=== PATIENT | male | born 1955 | race Caucasian/White ===

== ENCOUNTER 2017-08-13 15:55 | Inpatient (IN) | payer MEDICAID ==
[~2017-08-13] VITALS: Ht 193 cm; Wt 90.7 kg
[~2017-08-13 15:55] MED LIST: LISINOPRIL10 MG PO; OMEPRAZOLE20 M1 PO
[2017-08-13 16:34] LABS: BASOPHILS 0.1 % (0-2); EOSINOPHILS 0.3 % (0-7); HEMATOCRIT 47.4 % (42.0-54.0); HEMOGLOBIN 16.3 g/dL (13.5-17.5); IMMATURE GRANULOCYTES 0.3 % (0-5); LYMPHOCYTES 4.5 % (15-50); MCHC 34.4 g/dL (31.0-37.0); MCV 84.2 fL (80.0-100.0); MEAN PLATELET VOLUME 10.1 fL (7.4-10.4); MONOCYTES 4.4 % (2-11); NEUTROPHILS 90.4 % (40-80); PLATELET COUNT 153 10x3/uL (130-400); RBC 5.63 10x6/uL (4.20-6.10); RDW 14.4 % (11.5-14.5); WBC 12.3 10x3/uL (4.8-10.8)
[2017-08-13 16:57] LABS: ALBUMIN 4.1 g/dL (3.4-5.0); ANION GAP 11.5 mmol/L (8-16); BILIRUBIN - TOTAL 0.76 mg/dL (0.2-1.3); CALCIUM 9.8 mg/dL (8.5-10.1); CARBON DIOXIDE 29.9 mmol/L (21.0-32.0); CREATININE - SERUM 1.2 mg/dL (0.6-1.3); POTASSIUM - SERUM 3.4 mmol/L (3.5-5.1)
[2017-08-13 23:27] VITALS: BP 142/92
[2017-08-14 04:18] VITALS: BP 147/93
[2017-08-14 04:41] VITALS: BMI 24.4
[2017-08-14 07:47] LABS: BASOPHILS 0.2 % (0-2); EOSINOPHILS 1.5 % (0-7); HEMATOCRIT 43.4 % (42.0-54.0); HEMOGLOBIN 14.3 g/dL (13.5-17.5); IMMATURE GRANULOCYTES 0.1 % (0-5); LYMPHOCYTES 14.7 % (15-50); MCH 28.3 pg (26.0-34.0); MCHC 32.9 g/dL (31.0-37.0); MCV 85.9 fL (80.0-100.0); MEAN PLATELET VOLUME 10.7 fL (7.4-10.4); MONOCYTES 11.2 % (2-11); NEUTROPHILS 72.3 % (40-80); PLATELET COUNT 135 10x3/uL (130-400); RBC 5.05 10x6/uL (4.20-6.10); RDW 14.7 % (11.5-14.5)
[2017-08-14 07:51] LABS: WBC 9.2 10x3/uL (4.8-10.8)
[2017-08-14 07:58] LABS: APTT 27.2 SECONDS (22.8-39.4); INR 1.07 (0.85-1.17); PROTIME 13.5 SECONDS (11.6-15.0)
[2017-08-14 08:13] LABS: ALBUMIN 3.2 g/dL (3.4-5.0); ANION GAP 11.3 mmol/L (8-16); BILIRUBIN - TOTAL 0.82 mg/dL (0.2-1.3); CALCIUM 9.2 mg/dL (8.5-10.1); CARBON DIOXIDE 32.1 mmol/L (21.0-32.0); CREATININE - SERUM 1.3 mg/dL (0.6-1.3); POTASSIUM - SERUM 3.4 mmol/L (3.5-5.1); PROTEIN - SERUM 6.7 g/dL (6.4-8.2)
[2017-08-14 08:53] LABS: APPEARANCE TURBID (CLEAR); BILIRUBIN NEGATIVE (NEGATIVE); COLOR YELLOW (YELLOW); EPITHELIAL CELLS 0-5 /hpf (0-5); GLUCOSE NEGATIVE (NEGATIVE); KETONE NEGATIVE (NEGATIVE); NITRITE NEGATIVE (NEGATIVE); PROTEIN NEGATIVE (NEGATIVE); SPECIFIC GRAVITY 1.015 (1.005-1.020); UROBILINOGEN NORMAL (NORMAL); WHITE CELLS - URINE 0-5 /hpf (0-5)
[2017-08-14 08:54] LABS: AMORPHOUS SEDIMENT >1+ /lpf (NONE SEEN); BACTERIA MODERATE /hpf (NONE SEEN); MUCUS <1+ /lpf (NONE SEEN)
[2017-08-14 15:36] VITALS: Ht 193 cm; Wt 90.7 kg
[2017-08-14 21:07] VITALS: BP 146/92
[2017-08-15 01:17] VITALS: BP 154/84
[2017-08-15 04:44] VITALS: BP 139/89
[2017-08-15 05:03] LABS: BASOPHILS 0.3 % (0-2); EOSINOPHILS 4.5 % (0-7); HEMATOCRIT 42.4 % (42.0-54.0); IMMATURE GRANULOCYTES 0.2 % (0-5); LYMPHOCYTES 17.6 % (15-50); MCH 28.6 pg (26.0-34.0); MCV 86.7 fL (80.0-100.0); MEAN PLATELET VOLUME 10.2 fL (7.4-10.4); MONOCYTES 9.8 % (2-11); NEUTROPHILS 67.6 % (40-80); PLATELET COUNT 110 10x3/uL (130-400); RBC 4.89 10x6/uL (4.20-6.10); RDW 14.8 % (11.5-14.5)
[2017-08-15 05:13] LABS: ANION GAP 11.1 mmol/L (8-16); CALCIUM 8.6 mg/dL (8.5-10.1); CARBON DIOXIDE 28.9 mmol/L (21.0-32.0); CREATININE - SERUM 1.1 mg/dL (0.6-1.3); MAGNESIUM - SERUM 1.9 mg/dL (1.8-2.4)
[2017-08-15 05:17] LABS: WBC 6.4 10x3/uL (4.8-10.8)
[2017-08-15 08:00] VITALS: BP 143/93
[2017-08-15 12:53] VITALS: BP 134/89
[2017-08-15 16:04] VITALS: BP 147/88
[2017-08-15 20:15] VITALS: BP 153/91
[2017-08-16 01:48] VITALS: BP 158/84
[2017-08-16 04:53] VITALS: BP 148/74
[2017-08-16 06:04] LABS: BASOPHILS 0.2 % (0-2); EOSINOPHILS 4.2 % (0-7); HEMATOCRIT 41.5 % (42.0-54.0); HEMOGLOBIN 13.9 g/dL (13.5-17.5); IMMATURE GRANULOCYTES 0.2 % (0-5); LYMPHOCYTES 20.8 % (15-50); MCH 28.5 pg (26.0-34.0); MCHC 33.5 g/dL (31.0-37.0); MEAN PLATELET VOLUME 10.3 fL (7.4-10.4); MONOCYTES 8.4 % (2-11); NEUTROPHILS 66.2 % (40-80); PLATELET COUNT 126 10x3/uL (130-400); RBC 4.88 10x6/uL (4.20-6.10); RDW 14.1 % (11.5-14.5); WBC 6.6 10x3/uL (4.8-10.8)
[2017-08-16 06:20] LABS: ANION GAP 14.6 mmol/L (8-16); CALCIUM 8.8 mg/dL (8.5-10.1); CARBON DIOXIDE 25.7 mmol/L (21.0-32.0); CREATININE - SERUM 1.1 mg/dL (0.6-1.3); MAGNESIUM - SERUM 2.1 mg/dL (1.8-2.4); POTASSIUM - SERUM 3.3 mmol/L (3.5-5.1)
[2017-08-16 08:32] VITALS: BP 149/89
[2017-08-16 12:30] VITALS: BP 152/92
[2017-08-16 16:26] VITALS: BP 128/84
== END 2017-08-16 19:40 | disposition home or self-care (01) | DRG 395 ==
LOC: D.ER 15:55 → D.MS 20:43 → D.EDHOLD 20:43 → D.MS 08-14 14:25
PROVIDERS: Family Medicine; Surgery
PROC: 0D9670Z Drainage of Stomach with Drainage Device, Via Natural or Artificial Opening (ICD-10-PCS; principal; 2017-08-13)
DX: K40.30 Unilateral inguinal hernia, with obstruction, without gangrene, not specified as recurrent (principal); I10 Essential (primary) hypertension; K21.9 Gastro-esophageal reflux disease without esophagitis; F17.200 Nicotine dependence, unspecified, uncomplicated; K44.9 Diaphragmatic hernia without obstruction or gangrene

== ENCOUNTER 2017-08-17 21:00 | Inpatient (IN) | payer MEDICAID ==
[~2017-08-17] VITALS: Ht 185.4 cm; Wt 80.1 kg
--- NOTE | ~2017-08-17 | CN ---
PATIENT NAME:ALESSANDRA JOSHI MEDICAL RECORD: [id number] : 55 LOCATION:[facility].2313 ADMIT DATE: 08/18/17 ACCOUNT: [id number] CONSULTING PHYSICIAN: IBRAHIMA CORTEZ MD REFERRING PHYSICIAN: MONICA HARRISON MD DATE OF CONSULTATION: 08/21/2017 CONSULT REQUESTING PHYSICIAN: Dr. LONNIE Harrison. REASON FOR CONSULTATION: Vent management. HISTORY OF PRESENT ILLNESS: Mr. Joshi is a 61-year-old gentleman who was admitted with a small-bowel obstruction. The patient underwent laparoscopic adhesiolysis surgery as well as hiatal hernia repair. The patient was difficult to extubate last night and kept on the ventilator. He has some respiratory as well as metabolic acidosis. The detailed history is not obtainable. The history was taken mainly by reviewing the patient's note and talking to the nursing staff. REVIEW OF SYSTEMS: As in history of present illness. PAST MEDICAL HISTORY: 1. Hypertension. 2. Possible underlying COPD, dyspnea on exertion. 3. History of small-bowel obstruction. PAST SURGICAL HISTORY: 1. He has a cholecystectomy. 2. Appendectomy. 3. Bladder reconstruction surgery. 4. Testicular implant. ALLERGIES: No known drug allergy. MEDICATIONS: On Enthuse is reviewed. PERSONAL AND SOCIAL HISTORY: The patient still current everyday smoker. He is also a drinker. FAMILY HISTORY: Noncontributory. PHYSICAL EXAMINATION: GENERAL: Now, the patient is orally intubated and sedated. VITAL SIGNS: The blood pressure is 129/76, pulse is 78, respiration is 17, temperature 98.4, SpO2 is 100% on mechanical ventilation, SIMV at rate of 18, tidal volume of 550, PEEP of 5. HEENT: Conjunctivae are pink. Sclerae are not icteric. NECK: Supple, no JVD. CHEST: There is no wheeze, no rales. HEART: Rate and rhythm regular, normal sound, no murmur. ABDOMEN: Incision present. The bowel sounds are not present. There is no distention. RECTAL: Deferred. EXTREMITIES: No cyanosis, no clubbing, no pedal edema. SKIN: Warm, normal turgor. CONSULT REPORT [id number] ALESSANDRA JOSHI CENTRAL NERVOUS SYSTEM: The patient is awake and alert. There are no obvious cranial nerve abnormalities. The gait was not tested. CHEST RADIOGRAPH: ET tube is in place. There are mild increased interstitial markings. LABORATORY DATA: CBC: WBC 12.1, hemoglobin 14, hematocrit 42, platelet count 175. Chemistry: Sodium is 142, potassium 4.4, BUN is 20, creatinine 1.5, glucose 138. IMPRESSION: 1. Acute hypoxic hypercapnic renal failure. 2. Respiratory and metabolic acidosis, status post laparoscopic adhesiolysis and hiatal hernia repair. 3. Small-bowel obstruction. 4. Tobacco dependence syndrome, suspect COPD. 5. Acute renal failure, possible acute tubular necrosis. RECOMMENDATION: 1. Continue mechanical ventilation. The patient is not weanable due to metabolic acidosis. 2. GI bleed and DVT prophylaxis, GI stress ulcer prevention, albuterol/ipratropium nebulizer. Check lactic acid. Start on bicarb drip. Adjust the normal saline IV fluid. 3. Follow up labs and chest radiograph. We will check the blood culture times 2. Dr. Harrison for involving me in the care of Mr. Joshi. TRANSINT:[id number] Voice Confirmation ID: [id number] DOCUMENT ID: [id number] IBRAHIMA CORTEZ MD CC: MONICA HARRISON MD [id number] DICTATION DATE: 08/21/17 1150 CHIEF CHEMIST: 08/21/17 1423 ADM IN [facility] [address] [place] [address]
--- NOTE | ~2017-08-17 | OP ---
PATIENT NAME: ALESSANDRA ROSAS MEDICAL RECORD: [id number] :55 LOCATION:D.M2 D.2111 ADMISSION DATE:08/18/17 SURGEON: DELIA STUBBS MD DATE OF OPERATION: 08/20/2017 This is an assistance note. Date of the procedure is 08/20/2017. I assisted Dr. LONNIE Nelson with a laparoscopic adhesiolysis for a small-bowel obstruction as well as a hiatal hernia repair. Due to the complexity of the procedure, it was necessary to have 2 attending surgeons present. My involvement in the operation included insertion of several trocars, retraction of tissues, dissection with the Harmonic scalpel including division of some gastric vessels as well as blunt dissection as well as dissection with the Harmonic scalpel up into the mediastinum, dissection of the esophagus from surrounding scar tissue and connective tissue. Also, mobilization of a portion of the esophagus and stomach. I ran the camera. Irrigated and suctioned. I then left as we removed the trocars and the skin incisions were closed. TRANSINT:[id number] Voice Confirmation ID: [id number] DOCUMENT ID: [id number] DELIA STUBBS MD at 1227 CC: [id number] DICTATION DATE: 08/20/172204 LANOLIN PLANT OPERATOR: 08/21/17 0540 DIS IN 08/27/17 [id number] [place] [address]
--- NOTE | ~2017-08-17 | OP ---
PATIENT NAME: ALESSANDRA ROSAS MEDICAL RECORD: [id number] :55 LOCATION:[facility] D.2313 ADMISSION DATE:08/18/17 SURGEON: MONICA HARRISON MD DATE OF OPERATION: 08/20/2017 SURGEON: Monica aHrrison MD (JJ) BATTERY SERVICE TECHNICIAN SURGEON: Shaun Storm MD PREOPERATIVE DIAGNOSES: 1. Small-bowel obstruction. 2. Large recurrent paraesophageal hernia. POSTOPERATIVE DIAGNOSES: 1. Small-bowel obstruction. 2. Large recurrent paraesophageal hernia. PROCEDURE PERFORMED: 1. Laparoscopic hiatal hernia repair. 2. Laparoscopic lysis of adhesions. Laparoscopic lysis of adhesions created a significant portion of the operation. This operation generally takes me 60-90 minutes. The operation lasted 3-1/2 hours secondary to the extensive adhesiolysis and prior recurrent paraesophageal hernia. ANESTHESIA: General. COMPLICATIONS: None. SPECIMENS: None. Case was clean. OPERATIVE COURSE: After consent was obtained, the patient was taken to the operating room and placed in supine position on the operating table. Next, general anesthesia was given via endotracheal intubation. After a timeout was performed to confirm the correct patient and procedure, the abdomen was then prepped and draped in typical sterile fashion. Local anesthetic was injected just above the umbilicus. A stab incision was made with 11-blade scalpel. Using an 11-mm bladeless optical trocar, the abdomen was entered under direct laparoscopic vision. Adequate pneumoperitoneum was achieved. The abdominal cavity was inspected. No evidence of bowel injury. No evidence of bleeding. At this time, 2 additional trocars were placed in the right lateral quadrant. Approximately 40 minutes was spent on laparoscopic lysis of adhesions until the left side of the abdominal wall was safely visualized. At that time, 2 additional 5-mm trocars were placed in the left lateral position. At this time again, continued laparoscopic lysis of adhesions was performed for approximately another 30-45 minutes. The small bowel loops were identified and ran from the ligament of Treitz to the terminal ileum. There was 3 densely adherent loops of small bowel to the anterior abdominal wall that were meticulously dissected using laparoscopic Metzenbaum scissors. Multiple intraloop adhesions were taken down using laparoscopic Metzenbaum scissors. At this time, lysis of adhesions was performed that is recurrent paraesophageal hernia. The stomach was fully mobilized laparoscopically using a combination of blunt dissection and Harmonic scalpel dissection. The hernia sac was entered. The vast majority of the hernia sac was excised using the Harmonic scalpel. The hiatal hernia was unable OPERATIVE REPORT [id number] ALESSANDRA ROSAS to be completely reduced secondary to dense scarring from previous paraesophageal hernia repair. At this time, the anterior hiatal hernia repair was performed using an 0 Stratafix polypropylene suture. The abdomen was then copiously irrigated, suctioned. There was no evidence of bowel injury. No evidence of bleeding. The small bowel was again run from the ligament of Treitz to the terminal ileum. No evidence of bowel injury. No evidence of bleeding. At this time, all remaining instruments were removed. The larger trocar sites were closed with an 0 Vicryl suture and a Ted-Garland suture passer in direct laparoscopic vision. At this time, once closed, all remaining instruments were removed. The abdomen was desufflated. Trocars were removed. Skin was closed with 4-0 Monocryl, Mastisol and Steri-Strips. At the end of the case, all needle and instrument counts were correct. No complications occurred. The patient was transferred to the ICU, intubated, in fair condition. TRANSINT:[id number] Voice Confirmation ID: [id number] DOCUMENT ID: [id number] MONICA HARRISON MD at 1813 CC: [id number] DICTATION DATE: 08/21/17 1233 FAST FOOD MANAGER: 08/21/17 1436 ADM IN [id number] [place] [address]
[2017-08-17 21:40] LABS: BASOPHILS 0.2 % (0-2); EOSINOPHILS 1.5 % (0-7); HEMATOCRIT 47.5 % (42.0-54.0); HEMOGLOBIN 16.4 g/dL (13.5-17.5); IMMATURE GRANULOCYTES 0.3 % (0-5); MCH 28.9 pg (26.0-34.0); MCHC 34.5 g/dL (31.0-37.0); MCV 83.6 fL (80.0-100.0); MONOCYTES 7.2 % (2-11); NEUTROPHILS 82.8 % (40-80); RBC 5.68 10x6/uL (4.20-6.10); RDW 14.1 % (11.5-14.5)
[2017-08-17 21:49] LABS: PLATELET COUNT 182 10x3/uL (130-400); WBC 10.3 10x3/uL (4.8-10.8)
[2017-08-17 21:53] LABS: ALBUMIN 4.2 g/dL (3.4-5.0); ANION GAP 14.8 mmol/L (8-16); BILIRUBIN - TOTAL 0.9 mg/dL (0.2-1.3); CALCIUM 10.4 mg/dL (8.5-10.1); CARBON DIOXIDE 23.8 mmol/L (21.0-32.0); MAGNESIUM - SERUM 2.5 mg/dL (1.8-2.4); PHOSPHOROUS 4.6 mg/dL (2.5-4.9); POTASSIUM - SERUM 3.6 mmol/L (3.5-5.1); PROTEIN - SERUM 8.6 g/dL (6.4-8.2)
[2017-08-17 21:58] LABS: CREATININE - SERUM 1.9 mg/dL (0.6-1.3)
[2017-08-17 22:12] LABS: APPEARANCE CLEAR (CLEAR); BILIRUBIN NEGATIVE (NEGATIVE); COLOR YELLOW (YELLOW); GLUCOSE NEGATIVE (NEGATIVE); KETONE NEGATIVE (NEGATIVE); NITRITE NEGATIVE (NEGATIVE); PROTEIN TRACE mg/dL (NEGATIVE); SPECIFIC GRAVITY 1.015 (1.005-1.020); UROBILINOGEN NORMAL (NORMAL)
[2017-08-17 22:13] LABS: BACTERIA MODERATE /hpf (NONE SEEN); RED CELLS - URINE 0-5 /hpf (0-5)
[2017-08-18 04:36] VITALS: BP 140/81; BMI 24.6
[2017-08-18 08:31] VITALS: BP 141/80
[2017-08-18 11:57] VITALS: BMI 24.6
[2017-08-18 12:00] VITALS: BP 152/93
[2017-08-18 15:51] VITALS: BP 152/91
[2017-08-18 16:04] VITALS: BP 152/91
[2017-08-18 20:00] VITALS: BP 132/76
[2017-08-19 04:56] LABS: BASOPHILS 0.4 % (0-2); EOSINOPHILS 5.6 % (0-7); HEMATOCRIT 41.3 % (42.0-54.0); HEMOGLOBIN 13.6 g/dL (13.5-17.5); LYMPHOCYTES 21.7 % (15-50); MCH 28.3 pg (26.0-34.0); MCHC 32.9 g/dL (31.0-37.0); MEAN PLATELET VOLUME 10.4 fL (7.4-10.4); MONOCYTES 10.1 % (2-11); NEUTROPHILS 62.2 % (40-80); RDW 13.9 % (11.5-14.5)
[2017-08-19 04:57] LABS: PLATELET COUNT 118 10x3/uL (130-400); WBC 4.8 10x3/uL (4.8-10.8)
[2017-08-19 05:28] LABS: ANION GAP 12.9 mmol/L (8-16); CALCIUM 8.3 mg/dL (8.5-10.1); CARBON DIOXIDE 25.7 mmol/L (21.0-32.0); MAGNESIUM - SERUM 1.9 mg/dL (1.8-2.4); POTASSIUM - SERUM 3.6 mmol/L (3.5-5.1)
[2017-08-19 05:30] LABS: CREATININE - SERUM 1.2 mg/dL (0.6-1.3)
[2017-08-19 08:21] VITALS: BP 153/89
[2017-08-19 12:29] VITALS: BP 160/95
[2017-08-19 16:35] VITALS: BP 139/80
[2017-08-19 20:00] VITALS: BP 142/78
[2017-08-20] VITALS (11 sets, daily range): BP systolic 119–199; BP diastolic 69–119
[2017-08-20 05:36] LABS: APTT 31.8 SECONDS (22.8-39.4); INR 1.12 (0.85-1.17)
[2017-08-20 08:40] LABS: ANION GAP 17.4 mmol/L (8-16); CALCIUM 8.4 mg/dL (8.5-10.1); CARBON DIOXIDE 21.4 mmol/L (21.0-32.0); CREATININE - SERUM 1.1 mg/dL (0.6-1.3); MAGNESIUM - SERUM 1.7 mg/dL (1.8-2.4); POTASSIUM - SERUM 3.8 mmol/L (3.5-5.1)
[2017-08-21] VITALS (31 sets, daily range): BP systolic 73–194; BP diastolic 48–121
[2017-08-21 04:42] LABS: BASOPHILS 0.1 % (0-2); EOSINOPHILS 0 % (0-7); IMMATURE GRANULOCYTES 0.7 % (0-5); LYMPHOCYTES 10.3 % (15-50); MCH 28.9 pg (26.0-34.0); MCHC 33.3 g/dL (31.0-37.0); MCV 86.6 fL (80.0-100.0); MEAN PLATELET VOLUME 10.8 fL (7.4-10.4); MONOCYTES 8.2 % (2-11); NEUTROPHILS 80.7 % (40-80); RBC 4.85 10x6/uL (4.20-6.10); RDW 14.3 % (11.5-14.5)
[2017-08-21 04:55] LABS: ANION GAP 21.4 mmol/L (8-16); CALCIUM 8.3 mg/dL (8.5-10.1)
[2017-08-21 04:56] LABS: PLATELET COUNT 175 10x3/uL (130-400); WBC 12.1 10x3/uL (4.8-10.8)
[2017-08-21 05:08] LABS: CREATININE - SERUM 1.5 mg/dL (0.6-1.3); POTASSIUM - SERUM 4.4 mmol/L (3.5-5.1)
[2017-08-22] VITALS (24 sets, daily range): BP systolic 105–146; BP diastolic 15–83; Ht 185.4 cm; Wt 80.1 kg
[2017-08-22 05:18] LABS: BASOPHILS 0.2 % (0-2); EOSINOPHILS 3.4 % (0-7); HEMATOCRIT 37.8 % (42.0-54.0); HEMOGLOBIN 12.6 g/dL (13.5-17.5); IMMATURE GRANULOCYTES 0.2 % (0-5); LYMPHOCYTES 7.8 % (15-50); MCH 28.6 pg (26.0-34.0); MCHC 33.3 g/dL (31.0-37.0); MCV 85.9 fL (80.0-100.0); MEAN PLATELET VOLUME 10.4 fL (7.4-10.4); MONOCYTES 9.5 % (2-11); NEUTROPHILS 78.9 % (40-80); PLATELET COUNT 125 10x3/uL (130-400); RDW 14.7 % (11.5-14.5); WBC 8.1 10x3/uL (4.8-10.8)
[2017-08-22 05:40] LABS: ALBUMIN 2.2 g/dL (3.4-5.0); BILIRUBIN - TOTAL 0.51 mg/dL (0.2-1.3); CALCIUM 7.9 mg/dL (8.5-10.1); PROTEIN - SERUM 5.4 g/dL (6.4-8.2)
[2017-08-22 05:54] LABS: ANION GAP 8.8 mmol/L (8-16); CARBON DIOXIDE 29.8 mmol/L (21.0-32.0); CREATININE - SERUM 1.1 mg/dL (0.6-1.3); POTASSIUM - SERUM 3.6 mmol/L (3.5-5.1)
[2017-08-22 07:55] LABS: MAGNESIUM - SERUM 1.8 mg/dL (1.8-2.4); PHOSPHOROUS 1.8 mg/dL (2.5-4.9)
[2017-08-23] VITALS (11 sets, daily range): BP systolic 107–143; BP diastolic 66–86
[2017-08-23 04:31] LABS: BASOPHILS 0.1 % (0-2); HEMATOCRIT 34.7 % (42.0-54.0); HEMOGLOBIN 11.6 g/dL (13.5-17.5); IMMATURE GRANULOCYTES 0.1 % (0-5); LYMPHOCYTES 11.4 % (15-50); MCH 28.4 pg (26.0-34.0); MCHC 33.4 g/dL (31.0-37.0); MONOCYTES 9.6 % (2-11); NEUTROPHILS 73.8 % (40-80); PLATELET COUNT 123 10x3/uL (130-400); RBC 4.08 10x6/uL (4.20-6.10); RDW 14.6 % (11.5-14.5); WBC 8.4 10x3/uL (4.8-10.8)
[2017-08-23 04:49] LABS: ALBUMIN 1.9 g/dL (3.4-5.0); ALKALINE PHOSPHATASE 57 U/L (46-116); ALT (SGPT) 12 U/L (10-68); BILIRUBIN - TOTAL 0.69 mg/dL (0.2-1.3); CALC OSMOLALITY 279 mosm/kg (275-300); CALCIUM 8.1 mg/dL (8.5-10.1); CARBON DIOXIDE 30.1 mmol/L (21.0-32.0); CHLORIDE - SERUM 105 mmol/L (98-107); CREATININE - SERUM 0.9 mg/dL (0.6-1.3); GLUCOSE 117 mg/dL (74-106); PROTEIN - SERUM 5.3 g/dL (6.4-8.2); SODIUM 140 mmol/L (136-145); UREA NITROGEN 12 mg/dL (7-18); eGFR NON AFRICAN AMERICAN > 90 mL/min (90-120)
[2017-08-23 05:01] LABS: POTASSIUM - SERUM 2.8 mmol/L (3.5-5.1)
[2017-08-24] VITALS: BP 130/85
[2017-08-24 04:00] VITALS: BP 103/63
[2017-08-24 05:35] LABS: BASOPHILS 0.1 % (0-2); EOSINOPHILS 7.6 % (0-7); HEMATOCRIT 33.3 % (42.0-54.0); HEMOGLOBIN 11.4 g/dL (13.5-17.5); IMMATURE GRANULOCYTES 0.1 % (0-5); MCH 28.5 pg (26.0-34.0); MCHC 34.2 g/dL (31.0-37.0); MCV 83.3 fL (80.0-100.0); MEAN PLATELET VOLUME 9.8 fL (7.4-10.4); MONOCYTES 10.3 % (2-11); NEUTROPHILS 67.9 % (40-80); PLATELET COUNT 125 10x3/uL (130-400); WBC 7.1 10x3/uL (4.8-10.8)
[2017-08-24 05:55] LABS: ALKALINE PHOSPHATASE 58 U/L (46-116); BILIRUBIN - TOTAL 1.13 mg/dL (0.2-1.3); CALC OSMOLALITY 276 mosm/kg (275-300); CALCIUM 8.2 mg/dL (8.5-10.1); CARBON DIOXIDE 27.5 mmol/L (21.0-32.0); CHLORIDE - SERUM 104 mmol/L (98-107); CREATININE - SERUM 0.9 mg/dL (0.6-1.3); GLUCOSE 99 mg/dL (74-106); PROTEIN - SERUM 5.5 g/dL (6.4-8.2); SODIUM 139 mmol/L (136-145); UREA NITROGEN 11 mg/dL (7-18); eGFR NON AFRICAN AMERICAN > 90 mL/min (90-120)
[2017-08-24 06:09] LABS: ALT (SGPT) 8 U/L (10-68); POTASSIUM - SERUM 2.9 mmol/L (3.5-5.1)
[2017-08-24 08:16] VITALS: BP 150/84
[2017-08-24 11:59] VITALS: BP 132/90
[2017-08-24 16:04] VITALS: BP 148/49
[2017-08-24 20:44] VITALS: BP 146/85
[2017-08-25 01:11] VITALS: BP 149/92
[2017-08-25 05:44] LABS: BASOPHILS 0.2 % (0-2); EOSINOPHILS 8.1 % (0-7); HEMATOCRIT 36.4 % (42.0-54.0); HEMOGLOBIN 12.6 g/dL (13.5-17.5); IMMATURE GRANULOCYTES 0.2 % (0-5); LYMPHOCYTES 8.6 % (15-50); MCH 28.8 pg (26.0-34.0); MCHC 34.6 g/dL (31.0-37.0); MCV 83.1 fL (80.0-100.0); MEAN PLATELET VOLUME 10.3 fL (7.4-10.4); MONOCYTES 12.1 % (2-11); NEUTROPHILS 70.8 % (40-80); RBC 4.38 10x6/uL (4.20-6.10); WBC 8.3 10x3/uL (4.8-10.8)
[2017-08-25 05:45] LABS: ALBUMIN 2.3 g/dL (3.4-5.0); ALKALINE PHOSPHATASE 69 U/L (46-116); ALT (SGPT) 9 U/L (10-68); CALC OSMOLALITY 273 mosm/kg (275-300); CALCIUM 8.6 mg/dL (8.5-10.1); CARBON DIOXIDE 27.5 mmol/L (21.0-32.0); CHLORIDE - SERUM 102 mmol/L (98-107); CREATININE - SERUM 0.8 mg/dL (0.6-1.3); GLUCOSE 111 mg/dL (74-106); POTASSIUM - SERUM 3.1 mmol/L (3.5-5.1); PROTEIN - SERUM 6.4 g/dL (6.4-8.2); SODIUM 137 mmol/L (136-145); UREA NITROGEN 10 mg/dL (7-18); eGFR NON AFRICAN AMERICAN > 90 mL/min (90-120)
[2017-08-25 05:46] VITALS: BP 145/93
[2017-08-25 05:52] LABS: PLATELET COUNT 187 10x3/uL (130-400)
[2017-08-25 08:26] VITALS: BP 149/92
[2017-08-25 11:51] VITALS: BP 144/97
[2017-08-25 16:33] VITALS: BP 151/92
[2017-08-25 20:46] VITALS: BP 147/88
[2017-08-26 01:06] VITALS: BP 151/98
[2017-08-26 05:51] LABS: ALBUMIN 2.3 g/dL (3.4-5.0); ALKALINE PHOSPHATASE 69 U/L (46-116); ALT (SGPT) 11 U/L (10-68); BILIRUBIN - TOTAL 1.27 mg/dL (0.2-1.3); CALCIUM 9.1 mg/dL (8.5-10.1); CARBON DIOXIDE 26.5 mmol/L (21.0-32.0); CHLORIDE - SERUM 100 mmol/L (98-107); CREATININE - SERUM 0.9 mg/dL (0.6-1.3); GLUCOSE 117 mg/dL (74-106); POTASSIUM - SERUM 3.2 mmol/L (3.5-5.1); PROTEIN - SERUM 6.5 g/dL (6.4-8.2); SODIUM 136 mmol/L (136-145); eGFR NON AFRICAN AMERICAN > 90 mL/min (90-120)
[2017-08-26 05:53] LABS: CALC OSMOLALITY 272 mosm/kg (275-300); UREA NITROGEN 13 mg/dL (7-18)
[2017-08-26 06:10] VITALS: BP 136/83
[2017-08-26 09:25] VITALS: BP 146/90
[2017-08-26 12:37] VITALS: BP 147/93
[2017-08-26 17:32] VITALS: BP 143/93
[2017-08-26 20:00] VITALS: BP 138/96
[2017-08-27] VITALS: BP 136/88
[2017-08-27 04:00] VITALS: BP 140/86
[2017-08-27 08:11] VITALS: BP 142/90
[2017-08-27 12:24] VITALS: BP 127/85
[2017-08-27 15:31] VITALS: BP 138/56
== END 2017-08-27 19:50 | disposition home or self-care (01) | DRG 326 ==
LOC: D.ER 21:00 → D.MS 08-18 02:29 → D.ICU 08-18 02:29 → D.EDHOLD 08-18 02:29 → D.MS 08-18 02:57 → D.ICU 08-20 22:39 → D.SDCHOLD 08-21 07:34 → D.ICU 08-21 07:34 → D.M2 08-23 13:35
PROVIDERS: Family Medicine; Internal Medicine Pulmonary Disease; Surgery
PROC: 0D9670Z Drainage of Stomach with Drainage Device, Via Natural or Artificial Opening (ICD-10-PCS; principal; 2017-08-18)
PROC: 0DN84ZZ Release Small Intestine, Percutaneous Endoscopic Approach (ICD-10-PCS; 2017-08-20)
PROC: 0BQT4ZZ Repair Diaphragm, Percutaneous Endoscopic Approach (ICD-10-PCS; 2017-08-20 14:00)
DX: K56.51 Intestinal adhesions [bands], with partial obstruction (principal); J96.21 Acute and chronic respiratory failure with hypoxia; J96.22 Acute and chronic respiratory failure with hypercapnia; N17.0 Acute kidney failure with tubular necrosis; K44.0 Diaphragmatic hernia with obstruction, without gangrene; E87.4 Mixed disorder of acid-base balance; I10 Essential (primary) hypertension; F17.200 Nicotine dependence, unspecified, uncomplicated; K40.91 Unilateral inguinal hernia, without obstruction or gangrene, recurrent